=== PATIENT | female | born 1985 | race Caucasian/White ===

== ENCOUNTER 2017-10-28 22:23 | Emergency (ER) | payer OTHER ==
[~2017-10-28] VITALS: Ht 154.9 cm; Wt 79.0 kg
[2017-10-28 22:27] VITALS: BP 130/77; PULSE 87; RESP 18; TEMP 98.7; O2SAT 97
--- NOTE | 2017-10-28 22:42 | PD ---
Physical Exam Narrative GENERAL: 32 y/o female in no apparent distress SKIN: Focused skin assessment warm/dry. HEAD: Atraumatic. Normocephalic. EYES: Pupils equal and round. ENT: No nasal bleeding or discharge. Mucous membranes pink and moist. NECK: Trachea midline. No JVD. CARDIOVASCULAR: Regular rate and rhythm. RESPIRATORY: No accessory muscle use. GASTROINTESTINAL: Abdomen soft, mild ttp to right mid abdomen, nondistended. NEUROLOGICAL: Awake and alert.Motor grossly within normal limits. Normal speech. PSYCHIATRIC: Appropriate mood and affect; insight and judgment normal. Data Data Last Documented VS Vital Signs Date Time Temp Pulse Resp B/P (MAP) Pulse Ox O2 Delivery O2 Flow Rate FiO2 10/28/17 22:27 98.7 87 18 130/77 (94) 97 Orders Orders Us Pelvis Comp W Dop Transvag (10/28/17 22:32) Ed Discharge Order (10/29/17 00:07) MDM Supervised Visit with TEJ: No Interpretation(s) Pelvic ultrasound with 2 cm simple ovarian cyst with blood flow, incidental stripe with calcification near cervix Narrative Course patient seen at [facility] with ovarian cyst on CT. Sent here for ultrasound to rule out torsion. This was ordered Patient updated, patient denies any new complaints, all questions answered. Patient knows that follow up is incumbent on them and to return to the emergency room immediately if new or worsening symptoms develop. Patient given strict return precautions, vitals reviewed and are normal, agrees to further workup as an outpatient. Diagnosis Primary Impression: Abdominal pain Qualified Codes: R10.9 - Unspecified abdominal pain Patient Instructions: General Instructions Additional Instruction: tylenol as needed, follow with gynecology this week, return as needed Med/Other Pt SpecificInfo: No Change to Meds Scripts No Active Prescriptions or Reported Meds Disposition: 01 DISCHARGE HOME Condition: Stable Lynn Prather MD Oct 28, 2017 22:42
--- NOTE | 2017-10-28 23:59 | RADRPT ---
EXAM DATE/TIME: 10/28/2017 22:54 [facility] COMPARISON: No previous studies available for comparison. INDICATIONS : Pelvic pain. MEDICAL HISTORY : Right lower quadrant pain. SURGICAL HISTORY : Cholecystectomy. ENCOUNTER: Initial ACUITY: 1 day PAIN SCORE: 4/10 LOCATION: Bilateral pelvis MEASUREMENTS: UTERUS: 9.5 x 6.8 x 5.3 cm ENDOMETRIAL STRIPE: 15 mm RIGHT OVARY: 3.6 x 3.3 x 2.5 cm LEFT OVARY: 2.9 x 2.3 x 1.6 cm FINDINGS: There is a punctate almost 9 mm calcification in the region of the cervix most likely benign. Small a pproximate 2.2 centimeter simple cyst is present in the right ovary. The uterus is unremarkable. CONCLUSION: Right ovarian cyst and punctate calcification in the uterus. Nonspecific thickening of the endometria l stripe KKelly Barboza MD on October 28, 2017 at 23:56 Board Certified Radiologist. This report was verified electronically.
[2017-10-29 00:25] VITALS: BP 118/68
== END 2017-10-29 00:31 | disposition home or self-care (01) ==
LOC: NEPC 22:23
DX: R10.9 Unspecified abdominal pain (principal); N83.291 Other ovarian cyst, right side
CPT/HCPCS: 74177; 76830; 76856; 80053; 81001; 83690; 84702; 85025; 85610; 85730; 87210; 87491; 87591; 93975; 96360; 99284; J7030; Q9967